=== PATIENT | male | born 1955 | race Caucasian/White ===

== ENCOUNTER 2017-05-18 11:18 | Emergency (ER) | payer BC ==
[~2017-05-18] VITALS: Ht 188 cm; Wt 125.0 kg
[2017-05-18 11:22] VITALS: BP 83/56; PULSE 86; RESP 17; TEMP 97.4; O2SAT 95
[2017-05-18] MEDS ORDERED: SODIUM CHLOR 0.9% 1000 ML INJ 1,000 ML IV ONE (11:33)
[2017-05-18 11:41] VITALS: BP 109/71; PULSE 85; RESP 18; O2SAT 97
[2017-05-18] MEDS ORDERED: ONDANSETRON HCL 4 MG/2 ML VIAL IVP ONE (11:45)
[2017-05-18] MEDS ORDERED: SODIUM CHLORIDE 0.9% FLUSH 10 ML FLUSH IVF PRN (11:45)
[2017-05-18 12:04] LABS: AUTOMATED NEUTROPHIL # 3.6 TH/MM3 (1.8-7.7); BASOPHIL % 0.5 % (0.0-2.0); EOSINOPHIL # 0.3 TH/MM3 (0-0.4); EOSINOPHIL % 5.6 % (0.0-4.0); HEMATOCRIT 49.3 % (39.0-51.0); HEMOGLOBIN 16.7 GM/DL (13.0-17.0); LYMPH % 23.2 % (9.0-44.0); LYMPHOCYTE # 1.4 TH/MM3 (1.0-4.8); MEAN CELL VOLUME 83.2 FL (80.0-100.0); MEAN CORPUSCULAR HEMOGLOBIN 28.2 PG (27.0-34.0); MEAN CORPUSCULAR HGB CONC 33.9 % (32.0-36.0); MEAN PLATELET VOLUME 8.9 FL (7.0-11.0); MONO % 12.4 % (0.0-8.0); MONOCYTE # 0.8 TH/MM3 (0-0.9); NEUT % 58.3 % (16.0-70.0); PLATELET COUNT 169 TH/MM3 (150-450); RED BLOOD COUNT 5.92 MIL/MM3 (4.50-5.90); RED CELL DISTRIBUTION WIDTH 13.9 % (11.6-17.2); WHITE BLOOD COUNT 6.2 TH/MM3 (4.0-11.0)
[2017-05-18 12:08] VITALS: BP 99/58; PULSE 81; RESP 18; O2SAT 95
--- NOTE | 2017-05-18 12:11 | RADRPT ---
EXAM DATE/TIME: 05/18/2017 11:34 [facility] COMPARISON: No previous studies available for comparison. INDICATIONS : Palpitations MEDICAL HISTORY : Hypertension. SURGICAL HISTORY : None. ENCOUNTER: Initial ACUITY: 1 day PAIN SCORE: 0/10 LOCATION: chest FINDINGS: A single view of the chest demonstrates the lungs to be symmetrically aerated without evidence of mas s, infiltrate or effusion. The cardiomediastinal contours are unremarkable. Osseous structures are intact. CONCLUSION: No acute disease. Evin Rothman MD on May 18, 2017 at 12:10 Board Certified Radiologist. This report was verified electronically.
[2017-05-18 12:14] LABS: PROTHROMBIN TIME - PATIENT 10.3 SEC (9.8-11.6)
[2017-05-18 12:22] LABS: ALBUMIN 3.4 GM/DL (3.4-5.0); AST (GOT) 25 U/L (15-37); BICARBONATE 27.9 MEQ/L (21.0-32.0); BLOOD UREA NITROGEN 19 MG/DL (7-18); CALCIUM 8.4 MG/DL (8.5-10.1); CHLORIDE 103 MEQ/L (98-107); CREATININE 1.55 MG/DL (0.60-1.30); GLOMERULAR FILTRATION RATE 45 ML/MIN (>89); GLUCOSE,RANDOM 162 MG/DL (74-106); SODIUM (NA) 139 MEQ/L (136-145)
[2017-05-18] MEDS ORDERED: PHEN1LIQ60 PO (12:24)
[2017-05-18] MEDS ORDERED: VITA500012 PO (12:24)
[2017-05-18] MEDS ORDERED: IBUP200T47 PO (12:24)
[2017-05-18] MEDS ORDERED: CORE25TA PO (12:24)
[2017-05-18] MEDS ORDERED: VALS320T6 PO (12:24)
[2017-05-18 12:27] LABS: ALKALINE PHOSPHATASE 66 U/L (45-117); ALT (GPT) 24 U/L (12-78); TOTAL BILIRUBIN ADULT 0.5 MG/DL (0.2-1.0); TOTAL PROTEIN 7.4 GM/DL (6.4-8.2); TROPONIN I LESS THAN 0.02 NG/ML (0.02-0.05)
--- NOTE | 2017-05-18 12:36 | RADRPT ---
EXAM DATE/TIME: 05/18/2017 12:15 [facility] COMPARISON: No previous studies available for comparison. INDICATIONS : Syncopal episode,dizzy RADIATION DOSE: 56.35 CTDIvol (mGy) MEDICAL HISTORY : Hypertension. SURGICAL HISTORY : None. ENCOUNTER: Initial ACUITY: 1 day PAIN SCALE: 0/10 LOCATION: cranial TECHNIQUE: Multiple contiguous axial images were obtained of the head. Using automated exposure control and adj ustment of the mA and/or kV according to patient size, radiation dose was kept as low as reasonably a chievable to obtain optimal diagnostic quality images. DICOM format image data is available electro nically for review and comparison. FINDINGS: CEREBRUM: The ventricles are normal for age. No evidence of midline shift, mass lesion, hemorrhage or acute in farction. No extra-axial fluid collections are seen. POSTERIOR FOSSA: The cerebellum and brainstem are intact. The 4th ventricle is midline. The cerebellopontine angle i s unremarkable. EXTRACRANIAL: The visualized portion of the orbits is intact. SKULL: The calvaria is intact. No evidence of skull fracture. CONCLUSION: Normal examination for a patient of this age. Evin Rothman MD on May 18, 2017 at 12:33 Board Certified Radiologist. This report was verified electronically.
--- NOTE | 2017-05-18 12:51 | PD ---
HPI Chief Complaint: Syncope/Near-Syncope Time Seen by Provider: 11:26 Travel History International Travel<30 days: No Contact w/Intl Traveler<30days: No Traveled to known affect area: No History of Present Illness HPI Patient is a 62 year old male who comes in after a syncopal episode. He says he was sitting on the toilet, had just had a bowel movement, which he says was not particularly strenuous, and he passed out. He did not feel dizzy at any point. He says all of a sudden he just woke up on the ground. He denies any chest pain. He says he has felt very unsteady since then. He denies any shortness of breath. He says he has been sick with flulike symptoms for the past few days, but woke up this morning feeling much better. He took NyQuil last night for his flu symptoms, but nothing else today. Severity is mild to moderate. PFSH Past Medical History Cardiovascular Problems: Yes Hypertension: Yes Immunizations Current: Yes Tetanus Vaccination: Unknown Influenza Vaccination: No Past Surgical History Surgical History: No Previous Surgery Social History Alcohol Use: Yes (OCC) Tobacco Use: No Substance Use: No Allergies-Medications (Allergen,Severity, Reaction): Coded Allergies: No Known Allergies (Unverified , 05/18/17) Reported Meds & Prescriptions Reported Meds & Active Scripts Active Reported Ibuprofen 200 Mg Tab 200-400 Mg PO Q4H PRN Nyquil Severe Cold/Flu Liq (Wpwyknvqdodty-Ikzwakrdsv-SF-Apap Liq) 5-6.25-10-325 Mg/15 Ml Liq 15 Ml PO Q6HR PRN Ergocalciferol 50,000 Unit Cap 50,000 Units PO WEEKLY Coreg (Carvedilol) 25 Mg Tab 25 Mg PO DAILY Valsartan-Hydrochlorothiazide 320-25 Mg Tab 1 Tab PO DAILY Review of Systems Except as stated in HPI: all other systems reviewed are Neg General / Constitutional: No: Fever, Chills Eyes: No: Blurred Vision HENT: Positive: Lightheadedness, No: Headaches Cardiovascular: No: Chest Pain or Discomfort, Palpitations Respiratory: No: Shortness of Breath Gastrointestinal: No: Nausea, Vomiting, Abdominal Pain Musculoskeletal: No: Myalgias, Edema Skin: No Rash, No Change in Pigmentation Neurologic: No: Weakness Physical Exam Narrative GENERAL: Awake and alert, no acute distress. SKIN: Focused skin assessment warm/dry. No wounds or signs of infection. HEAD: Atraumatic. Normocephalic. EYES: Pupils equal and round and reactive. No scleral icterus. Extraocular movements intact. ENT: Mucous membranes pink and moist. NECK: Trachea midline. No JVD. CARDIOVASCULAR: Regular rate and rhythm. No murmur appreciated. RESPIRATORY: No accessory muscle use. Clear to auscultation. Breath sounds equal bilaterally. GASTROINTESTINAL: Abdomen soft, non-tender, nondistended. MUSCULOSKELETAL: No obvious deformities. No clubbing. No cyanosis. No edema. NEUROLOGICAL: Awake and alert. No obvious cranial nerve deficits. Motor grossly within normal limits. Normal speech. PSYCHIATRIC: Appropriate mood and affect; insight and judgment normal. Data Data Last Documented VS Vital Signs Date Time Temp Pulse Resp B/P (MAP) Pulse Ox O2 Delivery O2 Flow Rate FiO2 05/18/17 12:08 81 18 99/58 (72) 95 Room Air 05/18/17 11:22 97.4 Orders Orders Complete Blood Count With Diff (05/18/17 11:33) Comprehensive Metabolic Panel (05/18/17 11:33) Troponin I (05/18/17 11:33) Act Partial Throm Time (Ptt) (05/18/17 11:33) Prothrombin Time / Inr (Pt) (05/18/17 11:33) Chest, Single Ap (05/18/17 11:33) Ct Brain W/O Iv Contrast(Rout) (05/18/17 11:33) Ecg Monitoring (05/18/17 11:33) Iv Access Insert/Monitor (05/18/17 11:33) Oximetry (05/18/17 11:33) Ondansetron Inj (Zofran Inj) (05/18/17 11:45) Sodium Chloride 0.9% Flush (Ns Flush) (05/18/17 11:45) Sodium Chlor 0.9% 1000 Ml Inj (Ns 1000 M (05/18/17 11:33) Electrocardiogram (05/18/17 11:36) Labs Laboratory Tests Test 05/18/17 11:50 White Blood Count 6.2 TH/MM3 Red Blood Count 5.92 MIL/MM3 Hemoglobin 16.7 GM/DL Hematocrit 49.3 % Mean Corpuscular Volume 83.2 FL Mean Corpuscular Hemoglobin 28.2 PG Mean Corpuscular Hemoglobin Concent 33.9 % Red Cell Distribution Width 13.9 % Platelet Count 169 TH/MM3 Mean Platelet Volume 8.9 FL Neutrophils (%) (Auto) 58.3 % Lymphocytes (%) (Auto) 23.2 % Monocytes (%) (Auto) 12.4 % Eosinophils (%) (Auto) 5.6 % Basophils (%) (Auto) 0.5 % Neutrophils # (Auto) 3.6 TH/MM3 Lymphocytes # (Auto) 1.4 TH/MM3 Monocytes # (Auto) 0.8 TH/MM3 Eosinophils # (Auto) 0.3 TH/MM3 Basophils # (Auto) 0.0 TH/MM3 CBC Comment DIFF FINAL Differential Comment Prothrombin Time 10.3 SEC Prothromb Time International Ratio 1.0 RATIO Activated Partial Thromboplast Time 26.8 SEC Blood Urea Nitrogen 19 MG/DL Creatinine 1.55 MG/DL Random Glucose 162 MG/DL Total Protein 7.4 GM/DL Albumin 3.4 GM/DL Calcium Level 8.4 MG/DL Alkaline Phosphatase 66 U/L Aspartate Amino Transf (AST/SGOT) 25 U/L Alanine Aminotransferase (ALT/SGPT) 24 U/L Total Bilirubin 0.5 MG/DL Sodium Level 139 MEQ/L Potassium Level 4.2 MEQ/L Chloride Level 103 MEQ/L Carbon Dioxide Level 27.9 MEQ/L Anion Gap 8 MEQ/L Estimat Glomerular Filtration Rate 45 ML/MIN Troponin I LESS THAN 0.02 NG/ML MDM Medical Decision Making Medical Screen Exam Complete: Yes Emergency Medical Condition: Yes Medical Record Reviewed: Yes Interpretation(s) ECG shows normal sinus rhythm at 86, no ST elevation or depression, incomplete right bundle branch block. Differential Diagnosis Dehydration versus ACS versus syncope versus electrolyte abnormality Narrative Course Patient is a 62-year-old male who comes in after syncopal episode. Exam shows no acute abnormalities. IV established, labs sent. Labs show no acute abnormalities. CT brain performed shows no acute abnormalities. Last [address] 05/18/17 [id number] Signed Impressions: Service Date/Time: April 12:15 - CONCLUSION: Normal examination for a patient of this age. Evin Rothman MD Chest X-Ray 05/18/17 [id number] Signed Impressions: Service Date/Time: April 11:34 - CONCLUSION: No acute disease. Evin Rothman MD I advised the patient that he should stay for further workup for the cause of his syncopal episode. I explained it can be caused by cardiac issues or blood flow to the brain issues. Advised that he could become very ill or even . He is awake, alert, oriented and is able to verbalize understanding of these risks. However, he does not wish to stay in the hospital at this time. He will sign out AGAINST MEDICAL ADVICE. AMA: The risks of leaving against medical advice without further evaluation treatment were discussed with the patient. These risks include cardiac dysfunction, cardiac dysrhythmia, possible heart attack, possible stroke or . The patient indicated understanding of these risks and appeared to have the capacity to make this decision. Diagnosis Primary Impression: Syncope Qualified Codes: R55 - Syncope and collapse Patient Instructions: General Instructions, Syncope (ED) Disposition: 07 AGAINST MEDICAL ADVICE Sylvie Khan MD May 18, 2017 12:51
[2017-05-18 13:00] VITALS: BP 131/67; PULSE 68; RESP 18; O2SAT 99
--- NOTE | 2017-05-19 20:45 | EKG ---
Date Performed: 05/18/2017 Time Performed: 11:36:38 PTAGE: 62 years EKG: Sinus rhythm LOW QRS VOLTAGE IN PRECORDIAL LEADS INCOMPLETE RIGHT BUNDLE BRANCH BLOCK POSSIBLE ANTERIOR MYOCARDIA L INFARCTION, AGE INDETERMINATE CONSIDER INFERIOR MYOCARDIAL INFARCTION, AGE INDETERMINATE ABNORMAL E CG NO PREVIOUS TRACING DOCTOR: Reilly Cruz Interpretating Date/Time 05/19/2017 20:44:10
== END 2017-05-18 14:38 | disposition left against medical advice (07) ==
LOC: NEPC 11:18
DX: R55 Syncope and collapse (principal); I10 Essential (primary) hypertension
CPT/HCPCS: 70450; 71045; 80053; 84484; 85025; 85610; 85730; 93005; 99284; J7030